=== PATIENT | male | born 1945 | race Two or more races ===

== ENCOUNTER 2017-04-19 13:09 | Inpatient (IN) | payer OTHER ==
[~2017-04-19] VITALS: Ht 165.1 cm; Wt 76.9 kg
[~2017-04-19 13:09] MED LIST: AMLO5TAB4 PO; GABA300C10 PO; INSU100C5 SQ-INSULIN; INSU100I28 SQ-INSULIN; LEVO500T47 PO; LEVO750T26 PO; LISI40TA PO; METF10002 PO; ONDA4TAB10 PO; SIMV20TA3 PO
[2017-04-19] MEDS ORDERED: FAMOTIDINE 20 MG/2 ML IVP ONE (14:00)
[2017-04-19] MEDS ORDERED: SODIUM CHLORIDE FLUSH 10ML SYR IVF ONE (14:00)
[2017-04-19] MEDS ORDERED: ONDANSETRON 2MG/ML, 2ML IVPush ONE (14:00)
[2017-04-19] MEDS ORDERED: FAMOTIDINE 20 MG/2 ML ONE (14:02)
[2017-04-19] MEDS ORDERED: ONDANSETRON 2MG/ML, 2ML ONE (14:02)
[2017-04-19 14:41] LABS: BASOPHILS # (AUTO) 0.02 x10^3/uL (0-0.1); BASOPHILS % (AUTO) 0 % (0-1); EOSINOPHILS # (AUTO) 0.09 x10^3/uL (0-0.4); EOSINOPHILS % (AUTO) 1 % (1-7); LYMPHOCYTES # (AUTO) 1.74 x10^3/uL (1-3.4); LYMPHOCYTES % (AUTO) 23 % (22-44); MD NO; MEAN CORPUSCULAR HEMOGLOBIN 26.2 pg (27.5-34.5); MEAN CORPUSCULAR HGB CONC 32.3 g/dL (33.2-36.2); MEAN CORPUSCULAR VOLUME 81.1 fL (81-97); MEAN PLATELET VOLUME 10.2 fL (7.4-10.4); MONOCYTES # (AUTO) 0.94 x10^3/uL (0.2-0.8); MONOCYTES % (AUTO) 13 % (2-9); NEUTROPHILS # (AUTO) 4.67 x10^3/uL (1.8-6.8); NEUTROPHILS % (AUTO) 63 % (42-75); PLATELET COUNT 230 x10^3/uL (130-400); RED BLOOD COUNT 5.04 x10^6/uL (4.38-5.82); RED CELL DISTRIBUTION WIDTH 14.6 % (9.4-14.8)
[2017-04-19 14:54] LABS: ALBUMIN 3.2 g/dL (3.4-5.0); ANION GAP 6 mmol/L (5-15); CALCIUM 8.7 mg/dL (8.5-10.1); CHLORIDE 104 mmol/L (98-107)
[2017-04-19 15:01] LABS: ALANINE AMINOTRANSFERASE 23 U/L (12-78); ALKALINE PHOSPHATASE 123 U/L (45-117); BILIRUBIN,TOTAL 0.5 mg/dL (0.2-1.0); CREATININE 1.69 mg/dL (0.7-1.3); TOTAL PROTEIN 7.5 g/dL (6.4-8.2); TROPONIN I < 0.015 ng/mL (0.000-0.045)
[2017-04-19] MEDS ORDERED: CHLO25TA PO (15:06)
[2017-04-19] MEDS ORDERED: ATOR40TA78 PO (15:06)
[2017-04-19] MEDS ORDERED: INSU100C SQ-INSULIN (15:06)
[2017-04-19 15:27] LABS: MICROSCOPIC NOT IND
[2017-04-19] MEDS ORDERED: INSULIN REGULAR 100 UNITS/ML, 3ML VIAL ONE (16:28)
[2017-04-19] MEDS ORDERED: SODIUM BICARB 8.4%, 50ML SYRINGE ONE (16:28)
[2017-04-19] MEDS ORDERED: DEXTROSE 50%, 50ML SYRINGE ONE (16:28)
[2017-04-19] MEDS ORDERED: ALBUTEROL 0.5%, 20ML NPPB ONE (16:30)
[2017-04-19] MEDS ORDERED: INSULIN REGULAR 100 UNITS/ML, 3ML VIAL IVPush ONE (16:30)
[2017-04-19] MEDS ORDERED: SODIUM BICARB 8.4%, 50ML SYRINGE IVPush ONE (16:30)
[2017-04-19] MEDS ORDERED: DEXTROSE 50%, 50ML SYRINGE IVPush ONE (16:30)
[2017-04-19] MEDS ORDERED: SODIUM POLY SULFONATE UDC 15 GM/60 ML PO ONE (16:30)
[2017-04-19] MEDS ORDERED: SODIUM POLYSTYRENE SULFONATE ORAL SUSP ONE (16:32)
[2017-04-19] MEDS ORDERED: HYDROmorphone 2 MG/ML, 1ML ONE (16:57)
[2017-04-19] MEDS ORDERED: POLYETHYLENE GLYCOL 17 GM PACKET PO PRN (17:30)
[2017-04-19] MEDS ORDERED: GABAPENTIN 100 MG CAPSULE PO PRN (17:30)
[2017-04-19] MEDS ORDERED: BISACODYL 10 MG SUPP PR PRN (17:30)
[2017-04-19] MEDS ORDERED: DOCUSATE 100 MG CAPSULE PO PRN (17:30)
[2017-04-19] MEDS ORDERED: LABETALOL 5MG/ML, 20ML IVPush PRN (17:30)
[2017-04-19] MEDS ORDERED: ONDANSETRON 2MG/ML, 2ML IVPush PRN (17:30)
[2017-04-19] MEDS ORDERED: ACETAMINOPHEN 325 MG TABLET PO PRN (17:30)
[2017-04-19] MEDS: HEPARIN 5,000 UNITS/ML, 1ML SQ SCH (18:15)
[2017-04-19] MEDS: SODIUM CHLORIDE 0.9% 1,000 ML IV SCH (18:16)
[2017-04-19 20:01] VITALS: BP 136/64
[2017-04-19] MEDS: GABAPENTIN 300 MG CAPSULE PO SCH (21:00)
[2017-04-19] MEDS: ATORVASTATIN 40 MG TABLET PO SCH (21:41)
[2017-04-19] MEDS: VALACYCLOVIR 500MG TABLET PO SCH (21:42)
[2017-04-19] MEDS: INSULIN GLARGINE 100 UNITS/ML, PEN SQ-INSULIN SCH (22:51)
[2017-04-19] MEDS: INSULIN LISPRO 100 UNITS/ML, PEN SQ-INSULIN SCH (22:52)
[2017-04-20 01:30] VITALS: BP 122/61
[2017-04-20] MEDS: VALACYCLOVIR 500MG TABLET PO SCH ×3 (05:44→21:46)
[2017-04-20] MEDS: SODIUM CHLORIDE 0.9% 1,000 ML IV SCH ×3 (05:44→22:34)
[2017-04-20] MEDS: HEPARIN 5,000 UNITS/ML, 1ML SQ SCH ×3 (05:44→21:47)
[2017-04-20 05:45] LABS: ANION GAP 9 mmol/L (5-15); CHLORIDE 108 mmol/L (98-107); CREATININE 1.48 mg/dL (0.7-1.3)
[2017-04-20 08:00] VITALS: BP 127/76
[2017-04-20] MEDS: INSULIN LISPRO 100 UNITS/ML, PEN SQ-INSULIN SCH ×5 (08:17→21:49)
[2017-04-20] MEDS: GABAPENTIN 300 MG CAPSULE PO SCH ×2 (08:17→21:46)
[2017-04-20] MEDS: AMLODIPINE 5 MG TABLET PO SCH (08:18)
[2017-04-20] MEDS: CHLORTHALIDONE 25 MG TABLET PO SCH (08:18)
[2017-04-20] MEDS ORDERED: LISINOPRIL 20 MG TABLET PO SCH (09:00)
[2017-04-20 12:53] VITALS: BP 127/59
[2017-04-20 13:48] VITALS: BP 126/47
[2017-04-20 20:27] VITALS: BP 146/59
[2017-04-20] MEDS: ATORVASTATIN 40 MG TABLET PO SCH (21:46)
[2017-04-20] MEDS: INSULIN GLARGINE 100 UNITS/ML, PEN SQ-INSULIN SCH (21:48)
[2017-04-21 05:14] VITALS: BP 132/56
[2017-04-21] MEDS: VALACYCLOVIR 500MG TABLET PO SCH (05:22)
[2017-04-21] MEDS: HEPARIN 5,000 UNITS/ML, 1ML SQ SCH (05:22)
[2017-04-21 05:59] LABS: CHLORIDE 109 mmol/L (98-107)
[2017-04-21 06:00] LABS: ANION GAP 9 mmol/L (5-15); CALCIUM 8.1 mg/dL (8.5-10.1)
[2017-04-21 06:01] LABS: CREATININE 1.09 mg/dL (0.7-1.3)
[2017-04-21 08:21] VITALS: BP 141/63
[2017-04-21] MEDS: INSULIN LISPRO 100 UNITS/ML, PEN SQ-INSULIN SCH (08:26)
[2017-04-21] MEDS: CHLORTHALIDONE 25 MG TABLET PO SCH (08:28)
[2017-04-21] MEDS: AMLODIPINE 5 MG TABLET PO SCH (08:28)
[2017-04-21] MEDS: GABAPENTIN 300 MG CAPSULE PO SCH (08:28)
[2017-04-21] MEDS ORDERED: VALA500T PO (09:41)
== END 2017-04-21 13:57 | disposition home or self-care (01) | DRG 595 ==
LOC: ED 16:15 → EDIP 16:43 → 4WST 17:46
PROVIDERS: ADMIT Hospitalist; ATTEND Hospitalist
DX: B02.9 Zoster without complications (principal); N17.0 Acute kidney failure with tubular necrosis; E44.0 Moderate protein-calorie malnutrition; K85.10 Biliary acute pancreatitis without necrosis or infection; E10.65 Type 1 diabetes mellitus with hyperglycemia; E78.00 Pure hypercholesterolemia, unspecified; E78.5 Hyperlipidemia, unspecified; E87.5 Hyperkalemia; I11.9 Hypertensive heart disease without heart failure; K76.0 Fatty (change of) liver, not elsewhere classified; E87.6 Hypokalemia; Z79.4 Long term (current) use of insulin; Z87.891 Personal history of nicotine dependence; Z68.28 Body mass index [BMI] 28.0-28.9, adult
CPT/HCPCS: 36415; 71045; 76700; 80047; 80048; 80053; 81003; 82962; 83690; 84132; 84484; 85025; 93005; 96374; 96375; J1644; J2405; J1815; J7030; S0028